=== PATIENT | male | born 1945 | race Caucasian/White ===

== ENCOUNTER 2021-02-05 05:18 | Inpatient (IN) ==
[~2021-02-05 05:18] MED LIST: Naloxone 0.4 MG/ML INJ IVP PRN
[2021-02-05] MEDS ORDERED: Perflutren Lipid Microsphere 1.3 ML in 0.9 % Sodium Chloride 8.7 ML IVP PRN (05:56)
[2021-02-05 06:06] LABS: Immature Granulocytes % 1.2 % (0-4); Red Cell Distribution Width 14.1 % (11.5-14.5)
[2021-02-05 06:08] LABS: Basophils # 0.1 K/mcL (0.0-0.2); Basophils % 0.2 %; Eosinophils # 0.1 K/mcL (0.0-0.6); Eosinophils % 0.4 %; Hematocrit 32.2 % (37.5-50.1); Hemoglobin 10.1 g/dL (12.9-16.9); Immature Platelets 1.6 % (1.1-6.1); Lymphocytes # 1.4 K/mcL (0.6-4.6); Lymphocytes % 4.9 %; Mean Corpuscular HGB Conc 31.4 g/dL (31.6-35.5); Mean Corpuscular Hemoglobin 30.5 pg (28.0-33.3); Mean Corpuscular Volume 97.3 fL (83.0-100.0); Mean Platelet Volume 9.2 fL (9.4-12.4); Monocytes # 0.8 K/mcL (0.0-1.3); Monocytes % 2.7 %; Platelet Count 396 K/mcL (140-400); Red Blood Count 3.31 M/mcL (4.19-5.50); Segmented Neutrophils % 90.6 %; White Blood Count 27.7 K/mcL (4.3-11.1)
[2021-02-05 06:10] LABS: Neutrophils # 25.1 K/mcL (1.6-8.9)
[2021-02-05 06:39] LABS: BUN/Creatinine Ratio 36 (6-26); Blood Urea Nitrogen 28 mg/dL (8-23); Calcium 8.9 mg/dL (8.6-10.3); Carbon Dioxide 27 mEq/L (23-29); Chloride 96 mEq/L (98-107); Glucose 167 mg/dL (70-105); Osmolality,Calculated 289 (280-300); Sodium 135 mEq/L (136-145); eGFR For African Americans > 60 (> 60); eGFR For Non-African Americans > 60 (> 60)
[2021-02-05] MEDS: *HR* Heparin 5,000 UNIT/ML VIAL SQ SCH ×2 (07:42→16:29)
[2021-02-05] MEDS: levoFLOXacin 750 MG/150 ML 750 MG/150 ML BAG IVPB SCH (07:43)
[2021-02-05] MEDS ORDERED: Furosemide 40 MG/4 ML VIAL IVP SCH (09:00)
[2021-02-05] MEDS ORDERED: *HR* HYDROcodone/Acet 5/325 mg TABLET PO PRN (10:09)
[2021-02-05] MEDS: *HR* OxyCODONE/APAP 5/325 TABLET PO PRN ×2 (10:32→16:29)
[2021-02-05] MEDS: MetroNIDAZOLE 500 MG/100 ML 500 MG/100 ML BAG IVPB SCH ×2 (10:32→16:28)
[2021-02-05 11:01] LABS: Adenovirus F 40/41 PCR Not detected (Not detect); Astrovirus PCR Not detected (Not detect); C.difficile Toxin A/B Gene PCR Not detected (Not detect); Campylobacter by PCR Not detected (Not detect); Cryptosporidium by PCR Not detected (Not detect); Cyclospora cayetanensis PCR Not detected (Not detect); E. coli O157 by PCR Not detected (Not detect); Entamoeba histolytica PCR Not detected (Not detect); Enteroaggregative E.coli(EAEC) Not detected (Not detect); Enteropathogenic E.coli(EPEC) Not detected (Not detect); Enterotoxigenic E.coli (ETEC) Not detected (Not detect); Giardia lamblia PCR Not detected (Not detect); Norovirus GI/GII PCR Not detected (Not detect); Plesiomonas shigelloides PCR Not detected (Not detect); Rotavirus A PCR Not detected (Not detect); Salmonella PCR Not detected (Not detect); Sapovirus PCR Not detected (Not detect); Shig/EnteroinvasiveE coli EIEC Not detected (Not detect); Shigalike tox-prod E coli STEC Not detected (Not detect); Vibrio PCR Not detected (Not detect); Vibrio cholerae PCR Not detected (Not detect); Yersinia enterocolitica PCR Not detected (Not detect)
[2021-02-05] MEDS: Finasteride 5 MG TABLET PO SCH (13:59)
[2021-02-05] MEDS ORDERED: Ipratropium/Albuterol Neb 3 ML IH PRN (17:15)
[2021-02-05] MEDS: Vancomycin 2,000 MG/520 ML IV.SOLN IVPB SCH (17:51)
[2021-02-05] MEDS: Pregabalin 50 MG CAPSULE GTUBE SCH (20:31)
[2021-02-05] MEDS: Nystatin POWDER 30 GM BOTTLE TP SCH (20:32)
[2021-02-05] MEDS: PETROLAT TP SCH (20:33)
[2021-02-05] MEDS: CALAMINE TP SCH (20:33)
[2021-02-05] MEDS: MENTHOL TP SCH (20:33)
[2021-02-05] MEDS: ZINC TP SCH (20:33)
[2021-02-06 06:43] LABS: Basophils % 0.1 %; Hematocrit 31.4 % (37.5-50.1); Hemoglobin 9.6 g/dL (12.9-16.9); Immature Granulocytes % 0.8 % (0-4); Lymphocytes # 1.2 K/mcL (0.6-4.6); Lymphocytes % 6.5 %; Mean Corpuscular HGB Conc 30.6 g/dL (31.6-35.5); Mean Corpuscular Hemoglobin 29.1 pg (28.0-33.3); Mean Corpuscular Volume 95.2 fL (83.0-100.0); Mean Platelet Volume 9.3 fL (9.4-12.4); Monocytes # 0.9 K/mcL (0.0-1.3); Monocytes % 4.5 %; Neutrophils # 16.7 K/mcL (1.6-8.9); Platelet Count 358 K/mcL (140-400); Segmented Neutrophils % 88.1 %
[2021-02-06 08:16] LABS: Folate 11.7 ng/mL (3.0-16.0)
[2021-02-06 08:51] LABS: % Iron Saturation 23 % (20-55); Alanine Aminotransferase 21 Units/L (7-52); Albumin 3.1 g/dL (3.5-5.7); Albumin/Globulin Ratio 0.8 (1.1-2.2); Alkaline Phosphatase 99 Units/L (34-104); Aspartate Amino Transferase 47 Units/L (13-39); BUN/Creatinine Ratio 42 (6-26); Bilirubin,Direct 0.1 mg/dL (0.0-0.2); Bilirubin,Indirect 0.7 mg/dL (0.0-1.0); Bilirubin,Total 0.8 mg/dL (0.3-1.0); Blood Urea Nitrogen 30 mg/dL (8-23); Carbon Dioxide 26 mEq/L (23-29); Chloride 95 mEq/L (98-107); Ferritin 1108 ng/mL (20-250); Globulin 4.1 g/dL (2.4-3.5); Glucose 100 mg/dL (70-105); Iron 38 mcg/dL (65-175); Magnesium 2.1 mg/dL (1.6-2.6); Osmolality,Calculated 288 (280-300); Potassium 3.7 mEq/L (3.5-5.1); Sodium 136 mEq/L (136-145); Total Protein 7.2 g/dL (6.4-8.9); Transferrin 119 mg/dL (203-362); eGFR For African Americans > 60 (> 60); eGFR For Non-African Americans > 60 (> 60)
[2021-02-06 09:12] LABS: Estimated Average Glucose 105 mg/dl; Hemoglobin A1C 5.3 %
[2021-02-06] MEDS: MetroNIDAZOLE 500 MG/100 ML 500 MG/100 ML BAG IVPB SCH ×3 (09:43→15:07)
[2021-02-06] MEDS: levoFLOXacin 750 MG/150 ML 750 MG/150 ML BAG IVPB SCH (09:43)
[2021-02-06] MEDS: Finasteride 5 MG TABLET PO SCH (09:44)
[2021-02-06] MEDS: carvediloL 6.25 MG TABLET PO SCH ×2 (09:44→18:13)
[2021-02-06] MEDS: Pregabalin 50 MG CAPSULE GTUBE SCH ×3 (09:44→20:50)
[2021-02-06] MEDS: Multivit/Ca/Min/Fe/FA 1 TAB TABLET PO SCH (09:44)
[2021-02-06] MEDS: Aspirin Enteric Coated 81 MG Tablet PO SCH (09:44)
[2021-02-06] MEDS: *HR* OxyCODONE/APAP 5/325 TABLET PO PRN ×2 (09:45→21:01)
[2021-02-06] MEDS: *HR* Heparin 5,000 UNIT/ML VIAL SQ SCH ×3 (09:45→15:06)
[2021-02-06] MEDS: ZINC TP SCH (09:46)
[2021-02-06] MEDS: Nystatin POWDER 30 GM BOTTLE TP SCH ×2 (09:46→20:50)
[2021-02-06] MEDS: CALAMINE TP SCH (09:46)
[2021-02-06] MEDS: PETROLAT TP SCH (09:46)
[2021-02-06] MEDS: MENTHOL TP SCH (09:46)
[2021-02-06] MEDS: Vancomycin 2,000 MG/520 ML IV.SOLN IVPB SCH (18:13)
[2021-02-07] MEDS: MetroNIDAZOLE 500 MG/100 ML 500 MG/100 ML BAG IVPB SCH ×2 (04:33→08:29)
[2021-02-07] MEDS: *HR* Heparin 5,000 UNIT/ML VIAL SQ SCH ×4 (04:33→23:52)
[2021-02-07 04:59] LABS: Basophils % 0.2 %; Eosinophils # 0.2 K/mcL (0.0-0.6); Eosinophils % 1.2 %; Hemoglobin 8.8 g/dL (12.9-16.9); Immature Granulocytes % 1.1 % (0-4); Lymphocytes % 21.1 %; Mean Corpuscular HGB Conc 31.4 g/dL (31.6-35.5); Mean Corpuscular Hemoglobin 29.4 pg (28.0-33.3); Mean Corpuscular Volume 93.6 fL (83.0-100.0); Mean Platelet Volume 9.6 fL (9.4-12.4); Monocytes # 1.3 K/mcL (0.0-1.3); Neutrophils # 9.6 K/mcL (1.6-8.9); Nucleated Red Blood Cells 0.2 /100 WBC (0); Platelet Count 321 K/mcL (140-400); Red Blood Count 2.99 M/mcL (4.19-5.50); Red Cell Distribution Width 13.9 % (11.5-14.5); Segmented Neutrophils % 67.4 %; White Blood Count 14.2 K/mcL (4.3-11.1)
[2021-02-07 05:12] LABS: BUN/Creatinine Ratio 42 (6-26); Blood Urea Nitrogen 30 mg/dL (8-23); Calcium 8.7 mg/dL (8.6-10.3); Carbon Dioxide 36 mEq/L (23-29); Chloride 98 mEq/L (98-107); Glucose 103 mg/dL (70-105); Magnesium 2.4 mg/dL (1.6-2.6); Osmolality,Calculated 296 (280-300); Potassium 4.2 mEq/L (3.5-5.1); Sodium 140 mEq/L (136-145); eGFR For African Americans > 60 (> 60); eGFR For Non-African Americans > 60 (> 60)
[2021-02-07] MEDS: carvediloL 6.25 MG TABLET PO SCH ×2 (08:27→16:14)
[2021-02-07] MEDS: Pregabalin 50 MG CAPSULE GTUBE SCH ×3 (08:28→20:52)
[2021-02-07] MEDS: Finasteride 5 MG TABLET PO SCH (08:28)
[2021-02-07] MEDS: Aspirin Enteric Coated 81 MG Tablet PO SCH (08:28)
[2021-02-07] MEDS: levoFLOXacin 750 MG/150 ML 750 MG/150 ML BAG IVPB SCH (08:28)
[2021-02-07] MEDS: Multivit/Ca/Min/Fe/FA 1 TAB TABLET PO SCH (08:28)
[2021-02-07] MEDS: *HR* OxyCODONE/APAP 5/325 TABLET PO PRN ×2 (08:32→22:59)
[2021-02-07] MEDS: Nystatin POWDER 30 GM BOTTLE TP SCH ×2 (08:54→20:52)
[2021-02-07] MEDS: Ertapenem 1,000 MG in 0.9 % Sodium Chloride Mini Bag 100 ML IVPB SCH (16:14)
[2021-02-07] MEDS: Vancomycin 2,000 MG/520 ML IV.SOLN IVPB SCH (17:51)
[2021-02-08] MEDS ORDERED: Melatonin 3 MG TABLET PO PRN (01:09)
[2021-02-08 03:45] LABS: Basophils % 0.2 %; Eosinophils # 0.2 K/mcL (0.0-0.6); Eosinophils % 1.7 %; Hematocrit 28.9 % (37.5-50.1); Hemoglobin 8.9 g/dL (12.9-16.9); Immature Granulocytes % 0.4 % (0-4); Lymphocytes # 1.8 K/mcL (0.6-4.6); Lymphocytes % 19.4 %; Mean Corpuscular HGB Conc 30.8 g/dL (31.6-35.5); Mean Corpuscular Hemoglobin 29.1 pg (28.0-33.3); Mean Corpuscular Volume 94.4 fL (83.0-100.0); Monocytes # 0.7 K/mcL (0.0-1.3); Monocytes % 7.7 %; Neutrophils # 6.7 K/mcL (1.6-8.9); Platelet Count 354 K/mcL (140-400); Red Blood Count 3.06 M/mcL (4.19-5.50); Red Cell Distribution Width 14.1 % (11.5-14.5); Segmented Neutrophils % 70.6 %; White Blood Count 9.5 K/mcL (4.3-11.1)
[2021-02-08 04:08] LABS: BUN/Creatinine Ratio 39 (6-26); Blood Urea Nitrogen 22 mg/dL (8-23); Calcium 8.2 mg/dL (8.6-10.3); Carbon Dioxide 35 mEq/L (23-29); Chloride 96 mEq/L (98-107); Glucose 115 mg/dL (70-105); Magnesium 2.1 mg/dL (1.6-2.6); Osmolality,Calculated 290 (280-300); Sodium 138 mEq/L (136-145); eGFR For African Americans > 60 (> 60); eGFR For Non-African Americans > 60 (> 60)
[2021-02-08] MEDS: *HR* OxyCODONE/APAP 5/325 TABLET PO PRN ×2 (05:16→16:08)
[2021-02-08] MEDS ORDERED: Vancomycin 1,500 MG/265 ML IV.SOLN IVPB SCH (06:00)
[2021-02-08] MEDS: Pregabalin 50 MG CAPSULE GTUBE SCH ×2 (10:08→16:07)
[2021-02-08] MEDS: Finasteride 5 MG TABLET PO SCH (10:08)
[2021-02-08] MEDS: Aspirin Enteric Coated 81 MG Tablet PO SCH (10:08)
[2021-02-08] MEDS: Multivit/Ca/Min/Fe/FA 1 TAB TABLET PO SCH (10:09)
[2021-02-08] MEDS: carvediloL 6.25 MG TABLET PO SCH (10:09)
[2021-02-08] MEDS: *HR* Heparin 5,000 UNIT/ML VIAL SQ SCH (10:09)
[2021-02-08] MEDS: Calcium Gluconate 1gm/50mL 1 GM/50 ML BAG IVPB SCH ×2 (10:10→12:56)
[2021-02-08] MEDS: Ertapenem 1,000 MG in 0.9 % Sodium Chloride Mini Bag 100 ML IVPB SCH (10:11)
[2021-02-08] MEDS: Nystatin POWDER 30 GM BOTTLE TP SCH (10:15)
[2021-02-08 10:38] LABS: C-Reactive Protein < 5 mg/L (Less than 10)
[2021-02-08 10:56] VITALS: BP 120/67
[2021-02-08] MEDS ORDERED: Furosemide 40 MG/4 ML VIAL IVP SCH (15:00)
[2021-02-08] MEDS ORDERED: Clindamycin 600 MG/50 ML 600 MG/50 ML IV.SOLN IVPB SCH (16:00)
[2021-02-08] MEDS ORDERED: Lactobacillus 1 EACH CAP.SPRINK PO SCH (21:00)
== END 2021-02-08 16:45 | disposition short-term general hospital (02) | DRG 871 ==
LOC: 2NENU → SUATTDRO 05:18
PROVIDERS: ADMIT Internal Medicine; ATTEND Internal Medicine